=== PATIENT | female | born 1975 | race Caucasian/White ===

== ENCOUNTER → 2016-07-09 | Outpatient (CLI) | payer MEDICARE ==
[~2016-07-09] MED LIST: IBUPROFEN600 MG PO; LOVENOX SY40 MG/0.4 SQ; NAPROXEN250 MG PO; NEURONTIN800 MG PO; ROXICODONE TAB 55 MG PO; SEROQUEL100 MG PO; SUBOXONE 8 MG-1 EACH SL; ZANTAC300 MG PO; ZOFRAN4 MG PO
== END ==
LOC: LAB 16:14
DX: R60.1 Generalized edema (principal); F11.20 Opioid dependence, uncomplicated
CPT/HCPCS: 71020

== ENCOUNTER 2016-09-26 08:38 | Inpatient (IN) | payer MEDICARE ==
[~2016-09-26] VITALS: Ht 167.6 cm; Wt 119.8 kg
[~2016-09-26 08:38] MED LIST changes: -LOVENOX SY40 MG/0.4 SQ; -NAPROXEN250 MG PO; -NEURONTIN800 MG PO; -ROXICODONE TAB 55 MG PO; -SEROQUEL100 MG PO; -SUBOXONE 8 MG-1 EACH SL; -ZANTAC300 MG PO; -ZOFRAN4 MG PO
[2016-09-26 09:53] LABS: HEMOGLOBIN 11.9 gm/dl (12.3-15.3); RED BLOOD COUNT 4.41 M/UL (4.00-5.10); WHITE BLOOD COUNT 11.3 K/UL (4.5-11.0)
[2016-09-26 10:05] LABS: BUN/CREATININE RATIO 14 (0-10)
[2016-09-26] MEDS ORDERED: SEROQUEL100 MG PO (21:11)
[2016-09-26] MEDS ORDERED: SUBOXONE 8 MG-1 EACH SL (21:12)
[2016-09-26] MEDS ORDERED: NAPROXEN250 MG PO (21:12)
[2016-09-26] MEDS ORDERED: NEURONTIN800 MG PO (21:12)
[2016-09-26] MEDS ORDERED: ZOFRAN4 MG PO (21:13)
[2016-09-26] MEDS ORDERED: ZANTAC300 MG PO (21:13)
[2016-09-27 05:45] LABS: HEMOGLOBIN 11.4 gm/dl (12.3-15.3); RED BLOOD COUNT 4.26 M/UL (4.00-5.10); WHITE BLOOD COUNT 9.5 K/UL (4.5-11.0)
[2016-09-27 06:02] LABS: BUN/CREATININE RATIO 10 (0-10)
[2016-09-28 06:06] LABS: HEMOGLOBIN 11.6 gm/dl (12.3-15.3); RED BLOOD COUNT 4.34 M/UL (4.00-5.10); WHITE BLOOD COUNT 11.3 K/UL (4.5-11.0)
[2016-09-28 06:24] LABS: BUN/CREATININE RATIO 8 (0-10)
[2016-09-29 04:03] LABS: HEMOGLOBIN 11.6 gm/dl (12.3-15.3); RED BLOOD COUNT 4.29 M/UL (4.00-5.10); WHITE BLOOD COUNT 8.9 K/UL (4.5-11.0)
[2016-09-29 04:20] LABS: BUN/CREATININE RATIO 13 (0-10)
--- NOTE | 2016-09-29 19:23 | NUR ---
SPOKE WITH [facility] - THEY ARE GOING TO BE GOING OUT TO PT'S HOME TO DO DRESSING CHANGES STARTING ON THURSDAY (POD #5). ORDERED IN CHART. PT IS GOING HOME WITH A PRESCRIPTION FOR LOVENOX, I WILL GIVE INSTRUCTION AND EDUCATION ON HOW TO ADMINISTER THAT TO HERSELF PRIOR TO DISCHARGE.
[2016-09-29] MEDS ORDERED: LOVENOX SY40 MG/0.4 SQ (19:28)
[2016-09-29] MEDS ORDERED: ROXICODONE TAB 55 MG PO (19:51)
== END 2016-09-29 20:08 | disposition home or self-care (01) | DRG 493 ==
LOC: ER1 08:38 → M/S 17:30 → ZEROF 17:30 → M/S 21:08
PROVIDERS: Emergency Medicine; ADMIT Orthopaedic Surgery
PROC: 3E0T3CZ (ICD-10-PCS; 2016-09-27)
PROC: 0QSH04Z Reposition Left Tibia with Internal Fixation Device, Open Approach (ICD-10-PCS; principal; 2016-09-27 12:21)
PROC: 0QSJXZZ Reposition Right Fibula, External Approach (ICD-10-PCS; 2016-09-27 12:21)
DX: S82.142A Displaced bicondylar fracture of left tibia, initial encounter for closed fracture (principal); Z68.41 Body mass index [BMI] 40.0-44.9, adult; F11.20 Opioid dependence, uncomplicated; S82.64XA Nondisplaced fracture of lateral malleolus of right fibula, initial encounter for closed fracture; V49.88XA Car occupant (driver) (passenger) injured in other specified transport accidents, initial encounter; Y92.410 Unspecified street and highway as the place of occurrence of the external cause; E66.01 Morbid (severe) obesity due to excess calories; G89.29 Other chronic pain; M54.9 Dorsalgia, unspecified; F17.200 Nicotine dependence, unspecified, uncomplicated; F41.9 Anxiety disorder, unspecified; Z79.1 Long term (current) use of non-steroidal anti-inflammatories (NSAID); Z79.899 Other long term (current) drug therapy; Z91.040 Latex allergy status; Z98.51 Tubal ligation status; Z98.890 Other specified postprocedural states; Z82.3 Family history of stroke; Z83.3 Family history of diabetes mellitus
CPT/HCPCS: 29515; 36415; 70450; 71010; 71260; 72070; 72100; 72125; 73552; 73564; 73590; 73610; 73630; 73700; 76000; 80048; 80053; 81001; 84703; 85025; 85027; 96361; 96374; 96375; 96376; 97530; 99285; C1713; C1763; J0690; J1100; J1650; J2250; J2270; J2405; J2710; J2795; J3010; J7030; J7050; J7120; Q9962

== ENCOUNTER 2021-12-02 00:46 | Emergency (ER) | payer MEDICAID ==
[~2021-12-02 00:46] MED LIST changes: +LOVENOX SY40 MG/0.4 SQ; +NAPROXEN250 MG PO; +NEURONTIN800 MG PO; +ROXICODONE TAB 55 MG PO; +SEROQUEL100 MG PO; +SUBOXONE 8 MG-1 EACH SL; +ZANTAC300 MG PO; +ZOFRAN4 MG PO
[2021-12-02] MEDS ORDERED: AUGMENTIN XR 11 EACH PO (06:21)
== END 2021-12-02 06:50 | disposition home or self-care (01) ==
LOC: ER1 00:46
DX: L02.416 Cutaneous abscess of left lower limb (principal); F17.200 Nicotine dependence, unspecified, uncomplicated; Z86.19 Personal history of other infectious and parasitic diseases
CPT/HCPCS: 10060; 99282